=== PATIENT | male | born 1945 | race Caucasian/White ===

== ENCOUNTER 2018-03-01 23:08 | Emergency (ER) | payer MEDICARE, BC ==
--- NOTE | 2018-03-02 01:18 | ED ---
Abdominal Pain/Male - HPI Summary HPI Summary: This patient is a 72 year old M presenting to [facility] accompanied by with a chief complaint of RUQ pain that began two hours ago. The patient rates the pain 4/10 in severity. Symptoms aggravated by bending over and deep breaths. Symptoms alleviated by nothing. Patient denies cough, vomiting, fever, and chills. Patient reports he had outpatient eye surgery, lasting one hour, yesterday. - History of Current Complaint Chief Complaint: EDAbdPain Stated Complaint: CHEST PAIN Time Seen by Provider: 03/02/18 01:01 Hx Obtained From: Patient Onset/Duration: Sudden Onset, Lasting Hours, Still Present Timing: Constant Severity Initially: Moderate Severity Currently: Moderate Pain Intensity: 4 Pain Scale Used: 0-10 Numeric Location: Discrete At: RUQ Radiates: No Character: Sharp Aggravating Factor(s): Deep Breaths, Other: - Bending over Associated Signs And Symptoms: Negative: Fever, Cough, Vomiting - Allergies/Home Medications Allergies/Adverse Reactions: Allergies Allergy/AdvReac Type Severity Reaction Status Date / Time No Known Allergies Allergy Verified 03/02/18 00:25 PMH/Surg Hx/FS Hx/Imm Hx Previously Healthy: No Endocrine/Hematology History: Denies: Hx Diabetes Cardiovascular History: Denies: Hx Hypertension, Hx Pacemaker/ICD Respiratory History: Reports: Other Respiratory Problems/Disorders - BIOPSY OF LUNG, TEENAGER, NEGATIVE, NO PROBLEMS SINCE Denies: Hx Asthma History: Reports: Hx Kidney Stones - 1965 & 1971, PASSED ON OWN Denies: Hx Renal Disease Sensory History: Reports: Hx Contacts or Glasses - GLASSES, Hx Hearing Aid - WILL BE WEARING, BILATERAL Opthamlomology History: Reports: Hx Contacts or Glasses - GLASSES Psychiatric History: Reports: Hx Anxiety - ON MEDS Denies: Hx Panic Disorder - Cancer History Cancer Type, Location and Year: 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 2004 Lt SIDE ACOUSTIC NEUROMA - GAMMA KNIFE. 2016 LEFT KNEE TORN MENISCUS Hx Anesthesia Reactions: No - Immunization History Date of Tetanus Vaccine: utd Date of Influenza Vaccine: none Infectious Disease History: No Infectious Disease History: Denies: Traveled Outside the [place] in Last 30 Days - Family History Known Family History: Positive: Other - Negative anesthesia reaction - Social History Occupation: Employed Full-time Lives: With Family Alcohol Use: Daily Alcohol Amount: 1-2 DRINKS/DAY Substance Use Type: Reports: None Hx Tobacco Use: Yes Smoking Status (MU): Former Smoker Type: Cigarettes Amount Used/How Often: 4 YRS 1960s, NONE SINCE Have You Smoked in the Last Year: No Review of Systems Negative: Fever, Chills Negative: Cough Positive: Abdominal Pain. Negative: Vomiting All Other Systems Reviewed And Are Negative: Yes Physical Exam - Summary Physical Exam Summary: VITAL SIGNS: Reviewed. GENERAL: Patient is a well-developed and nourished male who is lying comfortable in the stretcher. Patient is not in any acute respiratory distress. HEAD AND FACE: No signs of trauma. No ecchymosis, hematomas or skull depressions. No sinus tenderness. EYES: PERRLA, EOMI x 2, No injected conjunctiva, no nystagmus. EARS: Hearing grossly intact. Ear canals and tympanic membranes are within normal limits. MOUTH: Oropharynx within normal limits. NECK: Supple, trachea is midline, no adenopathy, no JVD, no carotid bruit, no c- spine tenderness, neck with full ROM. CHEST: Symmetric, no tenderness at palpation LUNGS: Clear to auscultation bilaterally. No wheezing or crackles. Decreased breath sounds CVS: Regular rate and rhythm, S1 and S2 present, no murmurs or gallops appreciated. ABDOMEN: Soft, non-tender. Distention. No rebound no guarding, and no masses palpated. Bowel sounds are normal. EXTREMITIES: FROM in all major joints, no edema, no cyanosis or clubbing. NEURO: Alert and oriented x 3. No acute neurological deficits. Speech is normal and follows commands. SKIN: Dry and warm Triage Information Reviewed: Yes Vital Signs On Initial Exam: Initial Vitals Temp Pulse Resp BP Pulse Ox 98.6 F 71 15 141/83 96 03/01/18 23:11 03/01/18 23:11 03/01/18 23:11 03/01/18 23:11 03/01/18 23:11 Vital Signs Reviewed: Yes Diagnostics - Vital Signs Vital Signs Temp Pulse Resp BP Pulse Ox 03/02/18 00:24 16 142/81 03/02/18 00:23 12 03/01/18 23:11 98.6 F 71 15 141/83 96 - Laboratory Result Diagrams: 03/02/18 01:43 03/02/18 01:43 Lab Statement: Any lab studies that have been ordered have been reviewed, and results considered in the medical decision making process. - Radiology Chest XR Radiology Interpretation Completed By: ED Physician Summary of Radiographic Findings: CXR reveals, per ED physician, no acute process. - CT CT Abdomen and Pelvis CT Interpretation Completed By: Radiologist Summary of CT Findings: CT abdomen and pelvis reveals, per radiologist, 1. Cholelithiasis with no CT evidence of acute cholecystitis. 2. A small hiatal hernia. 3. Small fecal matter in the terminal ileum which is not dilated and may be due to incompetent ileocecal valve. No obstruction. 4. Mild enlargement of the prostate gland. 5. A 4.1 x 5.3 cm right hepatic cyst. ED physician has reviewed this radiology report. - EKG 0202 Cardiac Rate: NL EKG Rhythm: Sinus Rhythm - [address] Segment: Normal Ectopy: None Summary of EKG Findings: An EKG taken at 0202 reveals nml sinus rhythm at 63 BPM with normal axis, normal intervals, and no ischemic changes. Re-Evaluation - Re-Evaluation First Eval Re-Evaluation Time: 04:14 Change: Unchanged Comment: Discussed results and plan of care with patient Abdominal Pain Fem Course/Dx - Course Course Of Treatment: This patient is a 72 year old M presenting to [facility] accompanied by with a chief complaint of RUQ pain that began two hours ago. Physical Exam Findings: Distended abdomen. Decreased breath sounds. An EKG taken at 0202 reveals nml sinus rhythm at 63 BPM with normal axis, normal intervals, and no ischemic changes. CXR reveals, per ED physician, no acute process. CT abdomen and pelvis reveals, per radiologist, 1. Cholelithiasis with no CT evidence of acute cholecystitis. 2. A small hiatal hernia. 3. Small fecal matter in the terminal ileum which is not dilated and may be due to incompetent ileocecal valve. No obstruction. 4. Mild enlargement of the prostate gland. 5. A 4.1 x 5.3 cm right hepatic cyst. Bloodwork and UA obtained. In the ED course the patient was given contrast, morphine, and Zofran. Patient will be discharged with prescription for Percocet and follow up from surgery. The patient is agreeable with this plan. - Diagnoses Provider Diagnoses: Cholelithiases Discharge - Sign-Out/Discharge Documenting (check all that apply): Patient Departure - Discharge home - Discharge Plan Condition: Stable Disposition: HOME Prescriptions: oxyCODONE/Acetamin 5/325 MG* [Percocet 5/325 TAB*] 1 tab PO Q6H PRN #14 tab MDD 4 PRN Reason: Pain Patient Education Materials: Gallstones (ED) Referrals: Davis Malcolm MD [Primary Care Provider] - 2 Days Drew Mansfield MD [Medical Doctor] - 1 Day Additional Instructions: RETURN TO THE EMERGENCY DEPARTMENT FOR NEW OR WORSENING SYMPTOMS - Attestation Statements Document Initiated by Scribe: Yes Documenting Scribe: Sania Conteh Provider For Whom Scribe is Documenting (Include Credential): Dr. Tahmina Newman MD Scribe Attestation: Sania Roberts scribed for Dr. Tahmina Newman MD on 03/02/18 at 0417. Status of Scribe Document: Ready
[2018-03-02] MEDS ORDERED: Morphine VIAL* 4 MG/ML VIAL (1 ml vial) IV ONE (01:22)
[2018-03-02] MEDS ORDERED: Ondansetron INJ* 2 MG/ML VIAL IV ONE (01:22)
[2018-03-02 01:50] LABS: ABS Basophils 0 10^3/ul (0-0.2); ABS Eosinophils 0.2 10^3/ul (0-0.6); ABS Lymphocytes 1.1 10^3/ul (1.0-4.8); ABS Monocytes 0.9 10^3/ul (0-0.8); ABS Neutrophils 4.3 10^3/ul (1.5-7.7); ABS Nucleated RBC 0 10^3/ul; Eosinophil % 2.4 %; Hematocrit 40 % (42-52); Hemoglobin 13.3 g/dl (14.0-18.0); Lymphocyte % 17.3 %; Mean Corpuscular HGB Conc 34 g/dl (31-36); Mean Corpuscular Hemoglobin 30 pg (27-31); Mean Corpuscular Volume 88 fL (80-94); Mean Platelet Volume 6.9 fL (7.4-10.4); Nucleated Red Blood Cells % 0.1; Platelet Count 186 10^3/ul (150-450); Red Cell Distribution Width 14 % (10.5-15); White Blood Count 6.4 10^3/ul (3.5-10.8)
[2018-03-02 02:00] LABS: INR 0.91 (0.77-1.02)
[2018-03-02 02:07] LABS: EGFR Non-African American 88.1 (>60)
[2018-03-02] MEDS ORDERED: Iohexol 300* (CONTRAST) 10 ML SDV IV ONE (02:37)
[2018-03-02 03:56] LABS: Urine Appearance Clear; Urine Blood Negative (Negative); Urine Color Yellow; Urine Ketones Negative (Negative); Urine Protein Negative (Negative); Urine Specific Gravity 1.045 (1.010-1.030); Urine Urobilinogen Negative (Negative)
[2018-03-02 04:25] VITALS: BP 142/82
== END 2018-03-02 04:23 | disposition home or self-care (01) ==
LOC: ED 23:08
DX: K80.20 Calculus of gallbladder without cholecystitis without obstruction (principal); K44.9 Diaphragmatic hernia without obstruction or gangrene; N40.0 Benign prostatic hyperplasia without lower urinary tract symptoms; K76.89 Other specified diseases of liver; Z87.891 Personal history of nicotine dependence
CPT/HCPCS: 36415; 71045; 74177; 80053; 81003; 82150; 83690; 83735; 85025; 85379; 85610; 85730; 86140; 93005; 96374; 96375; 99283; J2270; J2405; Q9967

== ENCOUNTER 2018-10-04 08:52 | Emergency (ER) | payer MEDICARE, BC ==
--- NOTE | 2018-10-04 09:09 | ED ---
HPI Chest Pain - HPI Summary HPI Summary: This patient is a 73 year old M presenting to [facility] with a chief complaint of chest pain since night of 10/01/18. Pt describes the pain as pressure in the left side of his chest that does not radiate, and it is tender on palpation. His told him to see a doctor, so he called convenient care and was told they couldnt do anything. Pt indicates pain has improved since 10/01/18 and the patient rates the pain 0.5/10 in severity. Pt reports a couple days ago his chest hurt while taking deep breaths, but that has resolved. He reports he was doing heavy lifting on 09/30/18. Pt denies nausea and vomiting. Pt reports chronic constipation, but he tries to eat lot of bran. - History of Current Complaint Time Seen by Provider: 10/04/18 08:59 Hx Obtained From: Patient Onset/Duration: Started Days Ago, Still Present Timing: Constant, Lasting Days Initial Severity: Moderate Current Severity: Mild Pain Intensity: 1 Pain Scale Used: 0-10 Numeric Chest Pain Location: Discrete at:, Left Lateral Chest Pain Radiates: No Character: Pressure/Squeezing Associated Signs and Symptoms: Positive: Chest Pain, Other: - pos - constipation. Negative: Nausea, Vomiting - Allergy/Home Medications Allergies/Adverse Reactions: Allergies Allergy/AdvReac Type Severity Reaction Status Date / Time No Known Allergies Allergy Verified 03/02/18 00:25 PMH/Surg Hx/FS Hx/Imm Hx Endocrine/Hematology History: Denies: Hx Diabetes Cardiovascular History: Denies: Hx Hypertension, Hx Pacemaker/ICD Respiratory History: Reports: Other Respiratory Problems/Disorders - BIOPSY OF LUNG, TEENAGER, NEGATIVE, NO PROBLEMS SINCE Denies: Hx Asthma History: Reports: Hx Kidney Stones - 1965 & 1971, PASSED ON OWN Denies: Hx Renal Disease Sensory History: Reports: Hx Contacts or Glasses - GLASSES, Hx Hearing Aid - WILL BE WEARING, BILATERAL Opthamlomology History: Reports: Hx Contacts or Glasses - GLASSES Psychiatric History: Reports: Hx Anxiety - ON MEDS Denies: Hx Panic Disorder - Cancer History Cancer Type, Location and Year: 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 2004 Lt SIDE ACOUSTIC NEUROMA - GAMMA KNIFE. 2016 LEFT KNEE TORN MENISCUS Hx Anesthesia Reactions: No - Immunization History Date of Tetanus Vaccine: utd Date of Influenza Vaccine: none Infectious Disease History: No Infectious Disease History: Denies: Traveled Outside the [place] in Last 30 Days - Family History Known Family History: Positive: Other - Negative anesthesia reaction - Social History Lives: With Family Alcohol Use: Daily Alcohol Amount: 1-2 DRINKS/DAY Substance Use Type: Reports: None Hx Tobacco Use: Yes Smoking Status (MU): Former Smoker Type: Cigarettes Amount Used/How Often: 4 YRS 1960s, NONE SINCE Have You Smoked in the Last Year: No Review of Systems Positive: Chest Pain Positive: Other - pos - constipation. Negative: Vomiting, Nausea All Other Systems Reviewed And Are Negative: Yes Physical Exam - Summary Physical Exam Summary: VITAL SIGNS: Reviewed. GENERAL: Patient is a well-developed and nourished male who is lying comfortable in the stretcher. Patient is not in any acute respiratory distress. HEAD AND FACE: No signs of trauma. No ecchymosis, hematomas or skull depressions. No sinus tenderness. EYES: PERRLA, EOMI x 2, No injected conjunctiva, no nystagmus. EARS: Hearing grossly intact. Ear canals and tympanic membranes are within normal limits. MOUTH: Oropharynx within normal limits. NECK: Supple, trachea is midline, no adenopathy, no JVD, no carotid bruit, no c- spine tenderness, neck with full ROM. CHEST: Symmetric, Pinpointed with reproduction of pain on palpation on left side of chest LUNGS: Clear to auscultation bilaterally. No wheezing or crackles. CVS: Regular rate and rhythm, S1 and S2 present, no murmurs or gallops appreciated. ABDOMEN: Soft, non-tender. No signs of distention. No rebound, no guarding, and no masses palpated. Bowel sounds are normal. EXTREMITIES: FROM in all major joints, no edema, no cyanosis or clubbing. NEURO: Alert and oriented x 3. No acute neurological deficits. Speech is normal and follows commands. SKIN: Dry and warm Triage Information Reviewed: Yes Vital Signs On Initial Exam: Initial Vitals Temp Pulse Resp BP Pulse Ox 97.8 F 76 18 148/73 99 10/04/18 08:59 10/04/18 08:59 10/04/18 08:59 10/04/18 08:59 10/04/18 08:59 Vital Signs Reviewed: Yes Diagnostics - Vital Signs Vital Signs Temp Pulse Resp BP Pulse Ox 10/04/18 08:59 97.8 F 76 18 148/73 99 - Laboratory Result Diagrams: 10/04/18 09:04 10/04/18 09:04 Lab Statement: Any lab studies that have been ordered have been reviewed, and results considered in the medical decision making process. - Radiology CXR Radiology Interpretation Completed By: Radiologist Summary of Radiographic Findings: CXR reveals, per radiologist, IMPRESSION: #. Stigmata of probable obstructive lung disease. No acute pulmonary or cardiac process evident. ED physician has reviewed this radiology report. - EKG 0854 Cardiac Rate: NL EKG Rhythm: Sinus Rhythm Summary of EKG Findings: EKG reveals sinus rhythm 64 bpm, no ST elevations. Re-Evaluation - Re-Evaluation First Eval Re-Evaluation Time: 11:13 Comment: Discussed results and plan of care with pt. Pt is agreeable. Chest Pain Course/Dx - Course Assessment/Plan: This patient is a 73 year old M presenting to [facility] with a chief complaint of chest pain since the night of 10/01/18. Pt describes the pain as pressure in the left side of his chest that does not radiate, and it is tender on palpation. His told him to see a doctor, so he called convenient care and was told they couldnt do anything. Pt indicates pain has improved since 10/01/18 and the patient rates the pain 0.5/10 in severity. Pt reports a couple days ago his chest hurt while taking deep breaths, but that has been resolved. He reports he was doing the heavy lifting on 09/30/18. Pt denies nausea and vomiting. Pt reports chronic constipation, but he tries to eat lot of bran. In the ED course the patient was placed in a social science research assistant, IV access was obtained, IV fluids were started. Past medical history significant for sleep apnea, histoplasmosis, AcouStic neuroma and constipation. Blood test results without any significant abnormality except for slight anemia. Troponin 0.0. Chest x-ray impression: Stigmata of probably obstructive lung disease. No acute pulmonary or cardiac process evident. In the ED course the patient was given Toradol for the pain. Heart score is equal to 1. Therefore, no increased is for acute coronary syndrome. The patient is not tachycardic or hypoxic therefore have no suspicion for a PE. - Diagnoses Provider Diagnoses: Atypical chest pain Discharge - Sign-Out/Discharge Documenting (check all that apply): Patient Departure - Discharge Patient Received Moderate/Deep Sedation with Procedure: No - Discharge Plan Condition: Stable Disposition: HOME Patient Education Materials: Chest Pain (ED) Referrals: Davis Malcolm MD [Primary Care Provider] - 3 Days Additional Instructions: Follow up with your primary care provider within three days. RETURN TO THE ED FOR ANY WORSENING OR NEW SYMPTOMS. - Billing Disposition and Condition Condition: STABLE Disposition: Home - Attestation Statements Document Initiated by Tiffanie: Yes Documenting Jenniibe: Aide [place] Provider For Whom Tiffanie is Documenting (Include Credential): Dr. Trey Jessica MD Scribe Attestation: Aide Roberts scribed for Dr. Trey Jessica MD on 10/05/18 at 0815. Scribe Documentation Reviewed: Yes Provider Attestation: The documentation as recorded by the Aide elizondo accurately reflects the service I personally performed and the decisions made by , Dr. Trey Jessica MD Status of Scrmahoganye Document: Viewed
[2018-10-04 09:12] LABS: ABS Eosinophils 0.2 10^3/ul (0-0.6); ABS Lymphocytes 1.2 10^3/ul (1.0-4.8); ABS Monocytes 0.7 10^3/ul (0-0.8); ABS Neutrophils 2.9 10^3/ul (1.5-7.7); Eosinophil % 3.3 %; Hematocrit 41 % (42-52); Hemoglobin 13.8 g/dL (14.0-18.0); Lymphocyte % 24.6 %; Mean Corpuscular HGB Conc 34 g/dL (31-36); Mean Corpuscular Hemoglobin 30 pg (27-31); Mean Corpuscular Volume 88 fL (80-94); Mean Platelet Volume 6.9 fL (7.4-10.4); Nucleated Red Blood Cells % 0.1; Platelet Count 219 10^3/uL (150-450); Red Blood Count 4.63 10^6 /uL (4.18-5.48); Red Cell Distribution Width 13 % (10-15); White Blood Count 4.9 10^3/uL (3.5-10.8)
[2018-10-04 09:21] LABS: Activated Partial Thrombo Time 35.5 seconds (26.0-38.0); INR 0.93 (0.82-1.09)
[2018-10-04 09:33] LABS: Albumin/Globulin Ratio 1.5 (1-3); BUN/Creatinine Ratio 19.2 (8-20); Calcium 9.5 mg/dL (8.6-10.3); EGFR African American 89.2 (>60); EGFR Non-African American 73.7 (>60); Globulin 2.6 g/dL (2-4); Magnesium 1.9 mg/dL (1.9-2.7); Potassium 4.5 mmol/L (3.5-5.0); Total Bilirubin 0.4 mg/dL (0.2-1.0); Total Protein 6.6 g/dL (6.4-8.9)
[2018-10-04 09:37] LABS: CKMB ng/mL 2.8 ng/mL (0.6-6.3)
[2018-10-04 10:05] LABS: TSH (Thyroid Stimulating Horm) 1.65 mcIU/mL (0.34-5.60)
[2018-10-04] MEDS ORDERED: Ketorolac INJ* 30 MG/ML 1 ML VIAL IV PUSH ONE (10:10)
[2018-10-04 11:25] VITALS: BP 131/67
== END 2018-10-04 11:24 | disposition home or self-care (01) ==
LOC: ED 08:52
DX: R07.89 Other chest pain (principal); Z87.891 Personal history of nicotine dependence; K59.00 Constipation, unspecified; Z87.442 Personal history of urinary calculi
CPT/HCPCS: 36415; 71045; 80053; 82550; 82553; 83735; 83880; 84443; 84484; 85025; 85610; 85730; 93005; 99283; J1885